=== PATIENT | male | born 1995 | race Caucasian/White ===

== ENCOUNTER 2016-07-13 21:38 | Emergency (ER) | payer BC ==
--- NOTE | 2016-07-13 22:36 | EDPHY ---
H & P Stated Complaint: SHORT OF BREATH FOR PAST FEW HRS HPI/ROS: HPI CHIEF COMPLAINT: Cough, shortness of breath, wheezing HISTORY OF PRESENT ILLNESS: this patient very pleasant 21-year-old male significant past medical history for asthma, he presents to the emergency room with 2 days of progressively worsening shortness of breath and feeling sensation that he cannot take a deep breath in. He has had a bronchitic sounding cough nonproductive. He denies fever. Denies chest pain. States that he used to have asthma as a kid he does well with albuterol inhaler. He denies fever, muscle aches, joint pain, nausea vomiting or diarrhea. Past Medical History: Asthma, seasonal allergies Past Surgical History: no significant surgical history Social History: Denies use of drugs alcohol tobacco products Family History: noncontributory ROS REVIEW OF SYSTEMS: A comprehensive 10 point review of systems is otherwise negative aside from elements mentioned in the history of present illness. Exam Constitutional triage nursing summary reviewed, vital signs reviewed, awake/ alert. Eyes normal conjunctivae and sclera, EOMI, PERRLA. HENT normal inspection, atraumatic, moist mucus membranes, no epistaxis, neck supple/ no meningismus, no raccoon eyes. Respiratory decreased breath sounds bilaterally, faint wheezing, bronchitic sounds cough, no crackles or rales Cardiovascular rate normal, regular rhythm, no murmur, no edema, distal pulses normal. Gastrointestinal soft, non-tender, no rebound, no guarding, normal bowel sounds, no distension, no pulsatile mass. Genitourinary no CVA tenderness. Musculoskeletal no midline vertebral tenderness, full range of motion, no calf swelling, no tenderness of extremities, no meningismus, good pulses, neurovascularly intact. Skin pink, warm, & dry, no rash, skin atraumatic. Neurologic awake, alert and oriented x 3, AAOx3, moves all 4 extremities equally, motor intact, sensory intact, CN II-XII intact, normal cerebellar, normal vision, normal speech. Psychiatric normal mood/affect. Heme/Lymph/Immune no lymphadenopathy. Differential Diagnosis: includes but is not limited to in a particular order, bronchitis, pneumonia, asthma, pneumothorax Medical Decision Making: This patient will have a chest x-ray two view to rule out pneumonia/pneumothorax, patient be given a DuoNeb breathing treatment given decreased air movement and faint wheezing. We will re-evaluate. Re-evaluation: ED x-ray chest two view: Negative for acute cardiopulmonary disease. Image interpreted by myself. Specifically no pneumothorax, no pneumonia, clear lung morley good breath inspiratory effort trachea midline no subcutaneous air bones are unremarkable. 2320: Re-evaluation this time this patient is resting comfortably tells me feels much better after DuoNeb breathing treatment. His room air saturations 98 % re-examination of his lungs at this time he has good air movement, no wheezing I did offer him another breathing treatment if he thought he needed however he has declined would like to go home with an inhaler. I feel this is reasonable. He does understand if develops any worsening symptoms including shortness of breath, chest tightness, chest pain can breathing needs return to the ER. I have given him an albuterol MDI here he has declined steroids. He understands return if worsening symptoms. Source: Patient - Personal History Current Tetanus/Diphtheria Vaccine: Yes Current Tetanus Diphtheria and Acellular Pertussis (TDAP): Yes - Medical/Surgical History Hx Asthma: Yes Hx Chronic Respiratory Disease: No Hx Diabetes: No Hx Cardiac Disease: No Hx Renal Disease: No Hx Cirrhosis: No Hx Alcoholism: No Hx HIV/AIDS: No Hx Splenectomy or Spleen Trauma: No Other PMH: ASTHMA A CHILD - Social History Smoking Status: Never smoked Constitutional: Initial Vital Signs Temperature (C) 37.5 C 07/13/16 21:43 Heart Rate 100 07/13/16 21:43 Respiratory Rate 18 07/13/16 21:43 Blood Pressure 146/79 H 07/13/16 21:43 O2 Sat (%) 92 07/13/16 21:43 O2 Delivery Mode Room Air Allergies/Adverse Reactions: amoxicillin Allergy (Verified 07/13/16 21:46) penicillin G Allergy (Verified 07/13/16 21:46) Home Medications: Medication Instructions Recorded Albuterol 5 mg/ml INH [Proventil] 5 mg IH Q2-4PRN #1 btl 07/13/16 Cetirizine [ZyrTEC 10 mg (*)] 10 mg PO DAILY 07/13/16 Fluticasone Nasal [Flonase Nasal 2 sprays NASAL DAILY 07/13/16 [place] (RX)] Medical Decision Making - Data Points Medications Given: Discontinued Medications Albuterol/Ipratropium (Duoneb) 3 ml IH EDNOW ONE Stop: 07/13/16 22:41 Last Admin: 07/13/16 22:55 Dose: 3 ml Departure - Departure Disposition: Home, Routine, Self-Care Clinical Impression: Wheezing Condition: Good Instructions: Wheezing (ED), Asthma (ED) Additional Instructions: 1. Stay well-hydrated 2. return immediately to the emergency room if he develops any worsening symptoms questions or concerns. 3. Use your inhaler 2 puffs every 2-4 hours as needed if you get worsening shortness of breath wheezing return to the ER. Referrals: NONE *PRIMARY CARE P,. [Primary Care Provider] - As per Instructions Prescriptions: Albuterol 5 mg/ml INH [Proventil] 5 mg IH Q2-4PRN #1 btl
[2016-07-13] MEDS ORDERED: IPRATROPIUM/ALBUTEROL 3 ML DEYVIAL IH ONE (22:40)
--- NOTE | 2016-07-13 23:15 | DX ---
PA and Lateral Chest History: Cough and shortness of breath in a 21-year-old male; no previous studies are available for c omparison Findings: The heart and mediastinum are normal. Pulmonary vascularity is normal. The lungs are clear. There is no pleural fluid. Impression: Chest negative for acute disease..
[2016-07-13] MEDS ORDERED: ALBUTEROL INH PREPACK MDI TAKEHOME ONE (23:17)
[2016-07-13] MEDS ORDERED: ALBUTEROL 60 PUFFS/8 GM MDI IH ONE (23:22)
[2016-07-13 23:42] VITALS: BP 117/81; PULSE 93; RESP 20; TEMP 98.4; O2SAT 94
== END 2016-07-13 23:42 | disposition home or self-care (01) ==
DX: R06.2 Wheezing (principal)